=== PATIENT | female | born 1945 | race Caucasian/White ===

== ENCOUNTER → 2017-11-24 | Outpatient (CLI) | payer MEDICARE, OTHER ==
[~2017-11-24] MED LIST: ACE325 PO; ALE70 PO; ASCO-201 PO; CALC-28 PO; CEP500 PO; CHOL200025 PO; ESC10 PO; ESCI10TA8 PO; FISH OIL1 CAP PO; GLUC-135 PO; MULT-1319 PO; MULT-19 PO; PER PO; PRAV20TA66 PO; PREVASTATIN PO; UBID100C5 PO
--- NOTE | 2017-11-25 09:55 | RADIOLOGY IMAGING REPORT ---
FACILITY: [facility] - [place] PATIENT NAME: KARYN GOMEZ : [id number] MR: [id number] V: [id number] EXAM DATE: ORDERING PHYSICIAN: TOÑO MORENO TECHNOLOGIST: Britni Pisano PROCEDURE:BILATERAL DIGITAL SCREENING MAMMOGRAM WITH CAD ASSISTED INTERPRETATION AND 3D BREAST TOMOSYNTHESIS. COMPARISON:Prior mammograms dated 10/21/16, 10/15/15, 09/04/14, 02/27/14, 09/06/13 and 08/28/13. INDICATIONS:SCREENING FINDINGS: A small to moderate amount of fibroglandular tissue is seen throughout the breasts. The parenchymal pattern has remained stable when allowing for difference in mammographic technique and patient positioning. There is no evidence of malignant appearing mass, malignant appearing calcification or other secondary sign of malignancy in either breast. DIAGNOSTIC CATEGORY 1--NEGATIVE. RECOMMENDATIONS: ROUTINE MAMMOGRAM AND CLINICAL EVALUATION. IMPRESSION: Bi-RADS 1: No significant abnormality is seen. Images were reviewed with R2CAD and 3D breast tomosynthesis. Dictated by: Jasmine Woodson M.D. on 11/24/2017 at 15:58 Transcribed by: KATINA on 11/24/2017 at 19:57 Approved by: Jasmine Woodson M.D. on 11/25/2017 at 9:53 [facility]
== END ==
LOC: MAMO 02:34
PROVIDERS: ATTEND Family Medicine
DX: Z12.31 Encounter for screening mammogram for malignant neoplasm of breast (principal)
CPT/HCPCS: 77063; 77067

== ENCOUNTER → 2017-11-25 | Outpatient (CLI) | payer MEDICARE, OTHER ==
--- NOTE | 2017-11-25 11:01 | RADIOLOGY IMAGING REPORT ---
FACILITY: [facility] - [place] PATIENT NAME: Yessenia Nava : 1945 MR: [id number] V: [id number] EXAM DATE: ORDERING PHYSICIAN: TOÑO MORENO TECHNOLOGIST: Location: [facility] - [place] Patient: Yessenia Nava : 1945 Visit/Account:[id number] Date of Sevice: 11/25/2017 DEXA Scan HISTORY: Postmenopausal. COMPARISON: 2001, 2003, 2007 and 10/15/2015. LUMBAR SPINE: The bone mineral density (BMD) measured from L1-L4 correlates with a Z-score of +1.6 and a T-score of -0.2 which is normal as defined by the World Health Organization. The corresponding risk of fractur e in the lumbar spine is not increased compared with a young adult reference population. This value has increased by 4.2 % since the prior study. More than 5% change is considered significant. HIP: Bone mineral density (BMD) measured in the left femoral neck region correlates with a Z-score of -1.0 and a T-score of -2.8 which is compatible with osteoporosis as defined by the World Health Organizat ion. The corresponding risk of fracture in the hip is increased 6-8 times compared with a young adul t reference population. This value in the total hip has decreased by 0.4 % since the prior study. Mo re than 5% change is considered significant. Bone mineral density (BMD) measured in the left Femoral Neck region measures 0.649 g/cm2. IMPRESSION: 1. Lumbar spine: Normal. There has been no significant change in the bone mineral density since previous exam. 2. Left Femoral Neck: Compatible with osteoporosis. There has been no significant change in the paulina ne mineral density since the previous exam. 3. Left Femoral Neck: Bone Mineral Density is 0.649 g/cm2 The next DEXA scan of this patient should include the following sites: L1-L4 and left hip. FRAX? WHO Fracture Risk Assessment Tool link: <http://www.shef.ac.uk/FRAX/tool.jsp?locationValue=9> PLEASE NOTE: 1) The World Health Organization defines low BMD as follows: T-score Normal > -1 Osteopenia < -1 and > -2.5 Osteoporosis < -2.5 without fractures Established osteoporosis < -2.5 with fractures 2) In general, you may wish to consider: Diagnosis Treatment Follow-up DEXA Normal BMD Prevention 2-3 years Osteopenia Prevention/therapy 1-2 years Osteoporosis Therapy Yearly 3) Fracture risk estimated from the T-score is more accurate for vertebral fractures (often spontane ous) than for hip fractures. Report Dictated By: Niecy Mckenzie MD at 11/25/2017 10:56 AM Report E-Signed By: Niecy Mckenzie MD at 11/25/2017 10:58 AM WSN:[id number]
== END ==
LOC: RAD 03:03
PROVIDERS: ATTEND Family Medicine
DX: M81.0 Age-related osteoporosis without current pathological fracture (principal); Z78.0 Asymptomatic menopausal state
CPT/HCPCS: 77080

== ENCOUNTER → 2019-03-30 | Outpatient (CLI) | payer MEDICARE, OTHER ==
[~2019-03-30] MED LIST changes: +ESTR42.59 VG
--- NOTE | 2019-04-02 09:35 | RADIOLOGY IMAGING REPORT ---
FACILITY: [facility] PATIENT NAME: KARYN GOMEZ : [id number] MR: [id number] V: [id number] EXAM DATE: [id number] ORDERING PHYSICIAN: TOÑO MORENO TECHNOLOGIST: Britni Pisano PROCEDURE: BILATERAL DIGITAL SCREENING MAMMOGRAM WITH CAD ASSISTED INTERPRETATION & 3D TOMOSYNTHESIS REASON FOR STUDY: Screening. FAMILY HISTORY OF BREAST CANCER: None. BREAST PROCEDURES/TREATMENTS: 3 benign surgical biopsies in the Left breast. COMPARISON: 11/24/17, 10/21/16, 10/15/15, 09/04/14, 02/27/14, 09/06/13. VIEWS OBTAINED: 2D & 3D full field CC & MLO. BREAST DENSITY: There are scattered areas of fibroglandular density throughout the breasts. MAMMOGRAM FINDINGS: There is a new grouping of pleomorphic calcifications in the 3 o'clock position of the Left breast Spot magnification view is recommended for further evaluation. IMPRESSION: BIRADS 0: Incomplete. Additional views of the Left breast is recommended as described. DIAGNOSTIC CATEGORY 0--INCOMPLETE: NEED ADDITIONAL IMAGING EVALUATION. RECOMMENDATIONS: ADDITIONAL MAMMOGRAPHIC VIEWS REQUIRED: LEFT BREAST. Dictated by: Jasmine Woodson M.D. on 03/30/2019 at 15:32 Transcribed by: CRIS on 04/02/2019 at 8:36 Approved by: Jasmine Woodson M.D. on 04/02/2019 at 9:33 [facility]
== END ==
LOC: MAMO 00:57
PROVIDERS: ATTEND Family Medicine
DX: R92.2 Inconclusive mammogram (principal)
CPT/HCPCS: 77063; 77067

== ENCOUNTER 2019-04-11 01:07 | Day surgery (SDC) | payer MEDICARE, OTHER ==
[~2019-04-11] VITALS: Ht 160 cm; Wt 54.0 kg
[2019-04-11] MEDS ORDERED: LIDOCAINE/SOD BICARB 8.4% SYR ID ONE (08:20)
[2019-04-11] MEDS ORDERED: NORMOSOL R SOLN(*) 1000 ML BAG 1,000 ML IV PRN (08:20)
[2019-04-11 09:23] VITALS: BP 129/92
[2019-04-11] MEDS ORDERED: LIDOCAINE MPF 1% 5 ML VIAL ONE (09:56)
[2019-04-11] MEDS ORDERED: PROPOFOL EMUL(*) 10MG/ML 20 ML 40 ML ONE (09:56)
[2019-04-11 10:31] VITALS: BP 110/59
--- NOTE | 2019-04-11 10:42 | Short(Outpt) Discharge Summary ---
Discharge Summary Reason for Hosp/Final Diag: (1) Colon cancer screening Status: Chronic Hospital Course & Plan: Colonoscopy with polypectomy x2 completed without problems. Departure Discharge to: Home, Self Care Discharge Instructions Home Meds Active Scripts Escitalopram Oxalate (ESCITALOPRAM OXALATE) 10 Mg Tablet, 1 TAB PO QDAY for 90 Days, #90 TAB 2 Refills Prov:TOÑO MORENO MD 09/19/18 Pravastatin Sodium (PRAVASTATIN SODIUM) 20 Mg Tablet, 1 TAB PO QDAY for 90 Days, #90 TAB 4 Refills Prov:TOÑO MORENO MD 08/01/18 Diet: Regular Activity: As Tolerated Special Instructions: Your colonoscopy was completed without any problems and your prep was excellent (Good Job!!). I removed 2 small polyps from your colon and they were sent to pathology. My office will call you in the next week or two to let you know what the polyps are and when your next colonoscopy should be (either 5 or 10 years) depending on pathology results. ADRI CHAVES MD Apr 11, 2019 10:42
[2019-04-11 10:50] VITALS: BP 92/69
[2019-04-11 11:04] VITALS: BP 92/73
[2019-04-11 11:05] VITALS: BP 99/64
== END 2019-04-11 11:10 | disposition home or self-care (01) ==
LOC: OR 01:07
PROVIDERS: ATTEND Surgery
DX: Z12.11 Encounter for screening for malignant neoplasm of colon (principal); D12.4 Benign neoplasm of descending colon; K57.30 Diverticulosis of large intestine without perforation or abscess without bleeding
CPT/HCPCS: 00811; 45385; 88305; J2001; J2704

== ENCOUNTER → 2019-04-18 | Outpatient (CLI) | payer MEDICARE, OTHER ==
[~2019-04-18] MED LIST changes: +DIA5 PO
--- NOTE | 2019-04-18 17:01 | RADIOLOGY IMAGING REPORT ---
FACILITY: [facility] PATIENT NAME: KARYN GOMEZ : [id number] MR: [id number] V: [id number] EXAM DATE: [id number] ORDERING PHYSICIAN: TOÑO MORENO TECHNOLOGIST: Nanda Chaudhary PROCEDURE:LEFT DIGITAL MAMMOGRAM DIAGNOSTIC WITH CAD ASSISTED INTERPRETATION & 3D TOMOSYNTHESIS REASON FOR STUDY: Further evaluation. FAMILY HISTORY OF BREAST CANCER: BREAST PROCEDURES/TREATMENTS: COMPARISON STUDIES: Prior mammograms from 03/30/19, 11/24/17, 10/21/16, 10/15/15, 09/04/14, 02/27/14, 09/06/13 MAMMOGRAM VIEWS OBTAINED: Full field 2D Left mediolateral view & 2D spot magnification views in the Left CC & MLO projections. BREAST DENSITY: MAMMOGRAM FINDINGS: Redemonstrated is a new grouping of pleomorphic calcifications in the lateral inferior portion of the Left breast in the middle depth. Since these were not evident on the mammograms prior to 03/30/19, stereotactic biopsy is recommended. DIAGNOSTIC CATEGORY 4--SUSPICIOUS FOR MALIGNANCY. RECOMMENDATIONS: STEREOTACTIC BREAST BIOPSY: LEFT BREAST. IMPRESSION: BIRADS 4: Suspicious for malignancy Stereotactic biopsy recommended of the new pleomorphic calcifications in the lateral inferior portion of the Left breast. Dictated by: Jasmine Woodson M.D. on 04/18/2019 at 14:20 Transcribed by: NOHEMI on 04/18/2019 at 14:27 Approved by: Jasmine Woodson M.D. on 04/18/2019 at 16:58 [facility]
== END ==
LOC: MAMO 01:34
PROVIDERS: ATTEND Family Medicine
DX: N63.23 Unspecified lump in the left breast, lower outer quadrant (principal)
CPT/HCPCS: 77061; 77065

== ENCOUNTER → 2019-04-23 | Outpatient (CLI) | payer MEDICARE, OTHER ==
[2019-04-23 12:26] LABS: INR 0.96
== END ==
LOC: LAB 10:47
PROVIDERS: ATTEND Family Medicine
DX: Z01.812 Encounter for preprocedural laboratory examination (principal)
CPT/HCPCS: 36415; 85610; 85730

== ENCOUNTER → 2019-04-25 | Outpatient (CLI) | payer MEDICARE, OTHER ==
[~2019-04-25] MED LIST changes: +LIDO/EPI 1% MDV 1:100,000 20ML INFIL ONE; +NS 0.9% 250 ML BAG ONE; +WATER FOR INJ STERILE ONE
--- NOTE | 2019-04-27 15:44 | RADIOLOGY IMAGING REPORT ---
FACILITY: [facility] PATIENT NAME: KARYN GOMEZ : [id number] MR: [id number] V: [id number] EXAM DATE: [id number] ORDERING PHYSICIAN: TOÑO MORENO TECHNOLOGIST: Nanda Chaudhary PROCEDURE: BREAST SPECIMEN COMPARISON: None. INDICATIONS: breast calcifications FINDINGS: Specimen radiograph of the numerous stereotactic core biopsies demonstrates numerous calcifications in several of the core samples. CONCLUSION: As above. Dictated by: Jasmine Woodson M.D. on 04/25/2019 at 16:44 Transcribed by: NOHEMI on 04/27/2019 at 12:32 Approved by: Jasmine Woodson M.D. on 04/27/2019 at 15:41 [facility]
--- NOTE | 2019-04-27 15:45 | RADIOLOGY IMAGING REPORT ---
FACILITY: [facility] PATIENT NAME: KARYN GOMEZ : [id number] MR: [id number] V: [id number] EXAM DATE: [id number] ORDERING PHYSICIAN: TOÑO MORENO TECHNOLOGIST: Nanda Chaudhary PROCEDURE: STEREOTACTIC LEFT BREAST BIOPSY COMPARISON: None. INDICATIONS: breast calcification/Indeterminate calcifications in the Left breast FINDINGS: Informed consent was obtained. The patient was placed prone on the stereotactic biopsy table. The indeterminate calcifications in the Left breast were localized with digital stereo pair mammographic images. Local anesthesia was accomplished with 1% Lidocaine. Deep anesthesia was accomplished with 1% Lidocaine with epinephrine. 12 vacuum assisted 9 [place] core biopsies were obtained through the indeterminate calcifications in the Left breast. Specimen radiograph demonstrated numerous calcifications within several core samples. A biopsy clip was placed in the biopsy site. The procedure was accomplished without apparent complication. CONCLUSION: Successful stereotactic biopsy of the Left breast. Dictated by: Jasmine Woodson M.D. on 04/25/2019 at 16:44 Transcribed by: NOHEMI on 04/27/2019 at 12:30 Approved by: Jasmine Woodson M.D. on 04/27/2019 at 15:41 [facility]
--- NOTE | 2019-04-27 15:45 | RADIOLOGY IMAGING REPORT ---
FACILITY: [facility] PATIENT NAME: KARYN GOMEZ : [id number] MR: [id number] V: [id number] EXAM DATE: [id number] ORDERING PHYSICIAN: TOÑO MORENO TECHNOLOGIST: Nanda Chaudhary PROCEDURE:LEFT DIGITAL MAMMOGRAM DIAGNOSTIC REASON FOR STUDY: Post stereotactic biopsy for clip placement FAMILY HISTORY OF BREAST CANCER: BREAST PROCEDURES/TREATMENTS: COMPARISON STUDIES: MAMMOGRAM VIEWS OBTAINED: BREAST DENSITY: MAMMOGRAM FINDINGS: The stereotactic biopsy clip is located in the lateral inferior portion of the Left breast in the location of the previously noted indeterminate calcifications. Most of the calcifications have been removed. IMPRESSION: As above. Dictated by: Jasmine Woodson M.D. on 04/25/2019 at 16:45 Transcribed by: NOHEMI on 04/27/2019 at 12:34 Approved by: Jasmine Woodson M.D. on 04/27/2019 at 15:42 [facility]
== END ==
LOC: MAMO 00:10
PROVIDERS: ATTEND Family Medicine
DX: R92.1 Mammographic calcification found on diagnostic imaging of breast (principal)
CPT/HCPCS: 19081; 77061; 77065; 88305; 88344; J7050

== ENCOUNTER → 2019-06-14 | Outpatient (CLI) | payer MEDICARE, OTHER ==
[~2019-06-14] MED LIST changes: +CALC500T6 PO; +CHOL10005 PO; +DOCU100C56 PO; -LIDO/EPI 1% MDV 1:100,000 20ML INFIL ONE; -NS 0.9% 250 ML BAG ONE; +TRAM-420 PO; +UBID100C48 PO; -WATER FOR INJ STERILE ONE
--- NOTE | 2019-06-14 14:29 | RADIOLOGY IMAGING REPORT ---
FACILITY: [facility] PATIENT NAME: Yessenia Nava : 1945 MR: [id number] V: [id number] EXAM DATE: ORDERING PHYSICIAN: ADRI CHAVES TECHNOLOGIST: Location: [facility] - [place] Patient: Yessenia Nava : 1945 Visit/Account:[id number] Date of Sevice: 06/14/2019 EXAMINATION: Left breast sentinel node injection with imaging 06/14/2019 7:49 AM HISTORY: left axillary sentinal lymph node excision; breast ca COMPARISON: Mammographically guided left breast needle localization and subsequent specimen radiogra phs today are reported separately FINDINGS: The patient had received preprocedural EMLA cream. The left breast was prepped with Chlor aPrep. A total of 518 uCi technetium 99 and Lymphoseek was injected intradermally divided roughly eq ually into 4 portions along the areolar edge at the 12:00, 3:00, 6:00, and 9:00 positions. Subsequen t mammographically guided needle localization was performed which is reported separately. Imaging of the breast was done demonstrating lymph nodes showing uptake in the axillary area. IMPRESSION: Left breast sentinel node injection performed. Report Dictated By: Clint Kelly MD at 06/14/2019 2:17 PM Report E-Signed By: Clint Kelly MD at 06/14/2019 2:21 PM WSN:[id number]
--- NOTE | 2019-06-14 15:59 | RADIOLOGY IMAGING REPORT ---
FACILITY: [facility] PATIENT NAME: KARYN GOMEZ : [id number] MR: [id number] V: [id number] EXAM DATE: ORDERING PHYSICIAN: ADRI CHAVES TECHNOLOGIST: Britni Pisano PROCEDURE: BREAST SPECIMEN COMPARISON: Needle localization imaging today. INDICATIONS: Left axillary sentinal lymph node excision; breast ca/biopsy proven Left breast cancer/post needle localization for lumpectomy. FINDINGS: Left breast tissue was provided form the OR. The wire & clip are contained within the excised tissue, although there are towards the anterior edge of the tissue based on the margins by the surgeon. I reviewed these images with the surgeon. He did plan to take a small amount of additional anterior tissue although no additional specimen radiograph was planned. CONCLUSION: Left breast specimen radiograph shows the clip & wire within the excised tissue. See above discussion. Dictated by: Clint Kelly on 06/14/2019 at 15:19 Transcribed by: NOHEMI on 06/14/2019 at 15:47 Approved by: Clint Kelly on 06/14/2019 at 15:53 [facility]
--- NOTE | 2019-06-14 16:44 | RADIOLOGY IMAGING REPORT ---
FACILITY: [facility] - [place] PATIENT NAME: KARYN GOMEZ : [id number] MR: [id number] V: [id number] EXAM DATE: [id number] ORDERING PHYSICIAN: ADRI CHAVES TECHNOLOGIST: Britni Pisano PROCEDURE: NEEDLE LOCALIZATION LEFT BREAST COMPARISON: Stereotactic biopsy with post biopsy mammogram 04/25/19 INDICATIONS: Biopsy proven Left breast cancer with previous Left breast stereotactic biopsy for calcifications FINDINGS: Sentinal Node injection was performed & is reported separately. A lateral to medial approach to the clip was selected. The clip visualized well. The skin was cleansed with Chloraprep. Lidocaine was utilized for local anesthesia. A 9cm needle was advanced past the clip & CC imaging was utilized to adjust needle depth with the tip just past the clip. The hookwire was deployed & the needle was removed. CC & ML imaging was done to confirm the location of the needle by the clip. The patient was then transferred to surgery. CONCLUSION: Technically successful mammographically guided Left breast needle localization of the clip form the stereotactic biopsy. Subsequent specimen radiograph is reported separately. Dictated by: Clint Kelly on 06/14/2019 at 14:59 Transcribed by: NOHEMI on 06/14/2019 at 16:30 Approved by: Clint Kelly on 06/14/2019 at 16:39 [facility]
== END ==
LOC: NUC 03:56
PROVIDERS: ATTEND Surgery
DX: C50.912 Malignant neoplasm of unspecified site of left female breast (principal)
CPT/HCPCS: 19283; 78195; A9520